=== PATIENT | male | born 2000 | race Caucasian/White ===

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

== ENCOUNTER 2021-05-02 12:42 | Emergency (ER) | payer MEDICAID ==
--- NOTE | 2021-05-02 13:28 | EDM.PDOC ---
ED HPI GENERAL MEDICAL PROBLEM - General Stated Complaint: COVID EXPOSURE Time Seen by Provider: 05/02/21 13:00 Source of Information: Reports: Patient History Limitations: Reports: No Limitations - History of Present Illness INITIAL COMMENTS - FREE TEXT/NARRATIVE: 20-year-old gentleman came to the emergency department for evaluation of upper respiratory symptoms and possible exposure to COVID-19. He states that he has been sick for 2 to 3 days. He missed work last night. His complaints include sinus congestion, headache, sore throat, cough, some bloody sputum, fatigue, lethargy, fever/chills. Patient states that he has not taken anything to try to alleviate the symptoms. Patient states that there has been some Covid positive contacts at work and that he has been tested at work in the past and has been negative. He is not vaccinated. He has no other concerns or complaints at this time including change in bowel or bladder habits, chest pain. - Related Data Allergies Allergy/AdvReac Type Severity Reaction Status Date / Time No Known Allergies Allergy Verified 12/28/20 13:08 Home Meds: Home Meds NK [No Known Home Meds] 12/28/20 [History] Past Medical History - Past Health History Medical/Surgical History: Denies Medical/Surgical History - Past Surgical History Other Surgical History Comment: No previous surgeries. Social & Family History - Family History Family Medical History: No Pertinent Family History - Caffeine Use Caffeine Use: Reports: None - Living Situation & Occupation Occupation: Employed (Works at [employer]) ED ROS GENERAL - Review of Systems Review Of Systems: See Below Constitutional: Reports: Fatigue HEENT: Reports: Nosebleed, Throat Pain Respiratory: Reports: Cough, Sputum Cardiovascular: Reports: No Symptoms Endocrine: Reports: Fatigue GI/Abdominal: Reports: No Symptoms : Reports: No Symptoms Musculoskeletal: Reports: Joint Pain, Muscle Pain Skin: Reports: No Symptoms Neurological: Reports: No Symptoms Psychiatric: Reports: No Symptoms Hematologic/Lymphatic: Reports: No Symptoms Immunologic: Reports: No Symptoms ED EXAM, GENERAL - Physical Exam Exam: See Below Exam Limited By: No Limitations General Appearance: Alert, WD/WN, No Apparent Distress Eye Exam: Bilateral Eye: EOMI Ears: Normal External Exam, Normal Canal, Normal TMs Nose: Other (Mild erythema and edema bilaterally with no exudate) Throat/Mouth: Other (Mild erythema, no obvious edema, no exudate) Head: Atraumatic, Normocephalic Neck: Normal Inspection, Supple. No: Lymphadenopathy (R), Lymphadenopathy (L) Respiratory/Chest: No Respiratory Distress, Lungs Clear, Normal Breath Sounds Cardiovascular: Normal Peripheral Pulses, Regular Rate, Rhythm, No Edema Peripheral Pulses: 2+: Radial (L), Radial (R), Dorsalis Pedis (L), Dorsalis Pedis (R) GI/Abdominal: Normal Bowel Sounds, Soft, Non-Tender Back Exam: Normal Inspection Extremities: Normal Inspection Neurological: Alert, Oriented, CN II-XII Intact, Normal Cognition, Normal Gait Psychiatric: Normal Affect, Normal Mood Skin Exam: Warm, Dry, Intact Course - Orders/Labs/Meds Orders: Active Orders 24 hr Category Date Time Status CORONAVIRUS COVID-19 PAVAN [MOLEC] Stat Lab 05/02/21 13:20 Received Departure - Departure Time of Disposition: 13:51 Disposition: Home, Self-Care 01 Condition: Good Clinical Impression: Viral syndrome, Exposure to COVID-19 virus - Discharge Information *PRESCRIPTION DRUG MONITORING PROGRAM REVIEWED*: Not Applicable *COPY OF PRESCRIPTION DRUG MONITORING REPORT IN PATIENT EDMUND: Not Applicable Referrals: Vern Carolina MD [Primary Care Provider] - Forms: ED Return to Work/School Form - My Orders Last 24 Hours: My Active Orders 05/02/21 13:20 CORONAVIRUS COVID-19 PAVAN [MOLEC] Stat - Assessment/Plan Last 24 Hours: My Active Orders 05/02/21 13:20 CORONAVIRUS COVID-19 PAVAN [MOLEC] Stat
== END 2021-05-02 14:15 | disposition home or self-care (01) ==
LOC: FB.ED 12:42
DX: B34.9 Viral infection, unspecified (principal); Z20.822 Contact with and (suspected) exposure to COVID-19
CPT/HCPCS: 99283; U0002